=== PATIENT | male | born 1970 | race Caucasian/White ===

== ENCOUNTER 2017-04-07 03:26 | Emergency (ER) | payer SELFPAY ==
[~2017-04-07] VITALS: Ht 165.1 cm; Wt 61.7 kg
[2017-04-07] MEDS ORDERED: NKM (03:33)
[2017-04-07 03:37] VITALS: BP 115/76
--- NOTE | 2017-04-07 03:57 | Emergency Room Report ---
History of Present Illness General Chief Complaint: Male Urogenital Problems Source: Patient Present Illness HPI This is a 46-year-old male with no past medical history. He presents chief complaint of dysuria. Onset for last couple days. He said this occurred after sexual intercourse. He said that the condom broke. Denies any discharge. Worse with urination. Has urgency and frequency. No hematuria. No discharge. Allergies: Coded Allergies: No Known Allergies (Unverified , 04/07/17) Patient History Past Medical History: see triage record, old chart reviewed Past Surgical History: other Pertinent Family History: none Social History: Denies: smoking Immunizations: other Reviewed Nursing Documentation: PMH: Agreed, PSxH: Agreed Review of Systems Eye: Denies: eye pain, blurred vision ENT: Denies: ear pain, nose congestion, throat swelling Respiratory: Denies: cough, shortness of breath Cardiovascular: Denies: chest pain, palpitations Gastrointestinal: Denies: abdominal pain, diarrhea, nausea, vomiting Genitourinary: Reports: dysuria, frequency Musculoskeletal: Denies: back pain, joint pain Skin: Denies: rash Neurological: Denies: headache, numbness Endocrine: Denies: increased thirst, increased urine Hematologic/Lymphatic: Denies: easy bruising All Other Systems: negative except mentioned in HPI Physical Exam Vital Signs Date Time Temp Pulse Resp B/P (MAP) Pulse Ox O2 Delivery O2 Flow Rate FiO2 04/07/17 03:29 97.9 77 16 115/76 96 Room Air vitals normal Sp02 EP Interpretation: reviewed, normal General Appearance: well appearing, no apparent distress, alert Head: normocephalic, atraumatic Eyes: bilateral eye PERRL, bilateral eye EOMI ENT: hearing grossly normal, normal pharynx Neck: full range of motion, supple, no meningismus Respiratory: chest non-tender, lungs clear, normal breath sounds Cardiovascular #1: regular rate, rhythm, no murmur Gastrointestinal: normal bowel sounds, non tender, no mass, no organomegaly, no bruit, non-distended Genitourinary: no CVA tenderness, penis normal Musculoskeletal: back normal, gait/station normal, normal range of motion Psychiatric: mood/affect normal Skin: warm/dry Medical Decision Making Diagnostic Impression: Primary Impression: Urethritis Additional Impression: Dysuria ER Course Patient presents with dysuria and probable urethritis. He claimed that he cannot urinate. He drank about a liter fluid here. She doesn't need to urinate right now and refuse to give a urine sample. It appeared that he's been here before the nail Wilber Barraza. He denied this. We'll discharge home. Last Vital Signs Date Time Temp Pulse Resp B/P (MAP) Pulse Ox O2 Delivery O2 Flow Rate FiO2 04/07/17 03:37 97.9 77 16 115/76 96 Room Air Status: improved Disposition: HOME, SELF-CARE Condition: Stable Patient Instructions: Urethritis, Adult Additional Instructions: Followup your Dr. in 7 days. He may need to check a urine again. Return if symptom worsen. PHIL MONTERROSO M.D. Apr 07, 2017 03:57
[2017-04-07] MEDS ORDERED: Azithromycin 250mg tab ORAL ONE (04:00)
[2017-04-07] MEDS ORDERED: Lidocaine 1% MPF 10mg/ml 5ml INJ ONE (04:00)
[2017-04-07 04:35] VITALS: BP 115/76
== END 2017-04-07 04:35 | disposition home or self-care (01) ==
LOC: EMR 03:56
DX: N34.2 Other urethritis (principal); R30.0 Dysuria
CPT/HCPCS: 96372; 99284; J0696